=== PATIENT | male | born 1975 | race Caucasian/White ===

== ENCOUNTER 2017-08-21 05:38 | Inpatient (IN) | END 2017-08-22 11:40 | disposition home or self-care (01) | DRG 470 ==

== ENCOUNTER → 2017-10-14 | Outpatient (CLI) | END | disposition home or self-care (01) ==

== ENCOUNTER 2018-09-10 05:12 | Inpatient (IN) | payer OTHER ==
[2018-09-04 11:49] VITALS: Ht 180.3 cm; Wt 90.8 kg
[2018-09-10] VITALS (34 sets, daily range): BP systolic 104–143; BP diastolic 51–99; PULSE 58–91; RESP 11–21
[~2018-09-10] VITALS: Ht 180.3 cm; Wt 90.8 kg
[~2018-09-10 05:12] MED LIST: CEFAZOLIN 2 GM/50 ML (PMX) 50 ML IVPB ONE
--- NOTE | 2018-09-10 05:44 | HPN ---
Date/Time of Note Date/Time of Note DATE: 09/10/18 TIME: 05:44 Interval H&P Admission Note Pt. seen H&P reviewed: No system changes TANVI HYLTON MD September 10, 2018 05:44
--- NOTE | 2018-09-10 05:49 | OPR ---
Date/Time of Note Date/Time of Note DATE: 09/10/18 TIME: 05:45 Operative Report Procedure Date: September 10, 2018 Preoperative Diagnosis Left sciatic nerve entrapment Postoperative Diagnosis 1. Left sciatic nerve entrapment Operation/Procedure Performed 1. Left sciatic neurolysis 2. Injection of PRP solution Surgeon see signature line Diesel Service Apprentice Javed Guy MD Anesthesia Type: general Estimated Blood Loss: 10 - 50 ml's Transfusion none Specimen None Grafts/Implants none Complications none Pt Condition Post Procedure: stable Disposition: PACU Procedure Description NITRO WORKER SURGEON: Javed Guy MD was asked to be present at my request as a result of the complexity associated with this procedure including positioning of the extremity, positioning of the instrumentation and protection of the neurovascular structures. In my opinion, the assistance offered by a industrial cleaning technician is insufficient and Javed Guy MD should be compensated for his time. PROCEDURE IN DETAIL: Following the administration of general endotracheal anesthesia, the patient was placed in the right lateral decubitus position. The right antecubital fossa was prepped and 60 cc of blood were aspirated and given to the sales representative metals from the company for preparation of the PRP solution. All prominences were padded and axillary fold was placed. The leg was then prepped free. A lateral incision was then made exposing the tensor fascia the fascia through the prior incision. The abductor mechanism was then incised and split along its fibers. The area of the prior fracture was identified and very significant scar tissue was then delineated. Deep to the abductor mechanism, the sciatic nerve was then identified. The diet sciatic nerve was then carefully dissected and a thorough neurolysis was completed. There were significant scar bands attaching the sciatic nerve to the area of the prior fracture including along where the plate had been applied. There was very severe scarring with a very large vein that was dilated secondary to the poststenotic dilatation. The previously implanted hardware was covered over with significant scar tissue and no significant pro minence was noted. An extensive dissection of the nerve was then undertaken exposing the entirety of the sciatic nerve from the area below the abductor tendon insertion up to the sciatic notch. A complete neuro lysis was performed of the entire nerve. Using bipolar electrocautery several small bleeders were cauterized. The wound was thoroughly irrigated. The PRP solution was then placed along the area of the nerve. The wound was then closed in layers including 0 Vicryl, 2-0 Vicryl and 4-0 Monocryl followed by a Prenio for the final cover. This was watertight. Estimated blood loss was procedure was 50 cc. Postoperative radiographs will be obtained in the recovery room. TANVI HYLTON MD September 10, 2018 05:49
[2018-09-10] MEDS ORDERED: DEXAMETHASONE 1 MG TAB PO ONE (06:00)
[2018-09-10] MEDS ORDERED: SOD CHLORIDE 0.9% 100 ML, TRANEXAMIC ACID 3,000 MG IRR ONE ×2 (06:00)
[2018-09-10] MEDS ORDERED: BUPIVACAINE 0.5% (SDV) 30 ML, morphine SULFATE (PF) 8 MG, EPINEPHrine 0.3 MG, KETOROLAC... IRR SCH ×7 (06:00)
[2018-09-10] MEDS ORDERED: GABAPENTIN 300 MG CAP PO ONE (06:00)
[2018-09-10] MEDS ORDERED: TRANEXAMIC ACID 1GM/100ML(PMX) 100 ML IVPB ONE (06:00)
[2018-09-10] MEDS ORDERED: CEFAZOLIN 2 GM/50 ML (PMX) 50 ML IVPB ONE (06:00)
--- NOTE | 2018-09-10 06:44 | PREAC ---
Date/Time of Note Date/Time of Note DATE: 09/10/18 TIME: 06:43 Anesthesia Eval and Record Evaluation Time Pre-Procedure Interview DATE: 09/10/18 TIME: 06:43 Age 43 Sex male NPO: 8 hrs Preoperative diagnosis left sciatic nerve entrapment Planned procedure left hip sciatic neurolysis, possible removal of hardware Past Medical History Past Medical History: Includes Endo: Other (benign carcinoid tumor removal) GI: Obesity Surgery & Anesthesia Issues No known issue Meds Anticoagulation: No Beta Kemal within 24 hr: No Reason Beta Kemal not given: Pt. not on B-Kemal No Active Prescriptions or Reported Meds Current Medications Bupivacaine HCl/ Morphine Sulfate/ Epinephrine/ Ketorolac Tromethamine/ Clonidine HCl/ Sodium Chloride/ Vancomycin HCl INTRA-OP IRR ; Start 09/10/18 at 06:00 Lactated Ringer's 1,000 ml @ 75 mls/hr [id number] IV ; Start 09/10/18 at 06:00 Meds reviewed: Yes Allergies Coded Allergies: No Known Allergy (Unverified , 09/10/18) Allergies Reviewed: Yes Labs/Studies Labs Reviewed: Reviewed by anesthesiologist test: N/A Studies: ECG, CXR Pre-procedure Exam Last vitals Vital Signs Date Temp Pulse Resp B/P (MAP) Pulse Ox O2 O2 Flow FiO2 Time Delivery Rate 09/10/18 97.8 71 18 143/99 96 Room Air 05:36 (114) Airway: Adequate mouth opening, Adequate thyromental dist Mallampati: Mallampati II Teeth: Normal Lung: Normal Heart: Normal ASA Physical Status ASA physical status: 2 Emergency: None Planned Anesthetic General/MAC: LMA Planned Pain Management Parenteral pain med Pre-operative Attestations Prior to commencing anesthesia and surgery, the patient was re-evaluated, there was verification of: *The patient's identity *The results of appropriate recent lab work and preoperative vital signs *The above evaluation not changing prior to induction *Anesthetic plan, risk benefits, alternative and complications discussed with patient/family; questions answered; patient/family understands, accepts and wishes to proceed. GENESIS MINAYA September 10, 2018 06:44
[2018-09-10] MEDS ORDERED: DOXY100T20 PO (06:58)
[2018-09-10] MEDS ORDERED: LIDOCAINE 2% (SDV) 5 ML INJ ONE (06:59)
[2018-09-10] MEDS ORDERED: ROCURONIUM 50 MG INJ ONE (06:59)
[2018-09-10] MEDS ORDERED: PROPOFOL 20 ML ONE (06:59)
[2018-09-10] MEDS ORDERED: POLYMYXIN/BACITRACIN 1L IRRIG ONE (07:30)
[2018-09-10] MEDS ORDERED: THROMBIN 5000 UNIT VIAL ONE (07:30)
[2018-09-10] MEDS ORDERED: CA CHLORIDE (GM) 10% 10 ML INJ ONE (07:30)
[2018-09-10] MEDS ORDERED: CEFAZOLIN 1 GM INJ ONE (07:45)
[2018-09-10] MEDS ORDERED: ONDANSETRON 4 MG INJ ONE (07:45)
[2018-09-10] MEDS ORDERED: DEXAMETHASONE 4 MG/ML 5 ML INJ ONE (07:45)
--- NOTE | 2018-09-10 09:27 | PDOCDIS ---
Discharge Instructions DIAGNOSIS Discharge Diagnosis Sciatic nerve entrapment CONDITION [id number] Patient Condition: [id number] Good HOME CARE INSTRUCTIONS: [id number] Diet Instructions: [id number] Regular ACTIVITY: [id number] Activity Restrictions: Teidb2y Slowly Increase Activity Keep Limb Elevated [id number] Bathing Restrictions: [id number] Shower FOLLOW UP/APPOINTMENTS Follow-up Plan 2 weeks in the office SCHOOL/WORK RELEASE May return to School/Work with: No Restrictions School/Work Release Comment: Crutches as necessary. In addition, he is to take aspirin 81 mg twice TANVI Mcclure MD September 10, 2018 09:27
[2018-09-10] MEDS ORDERED: ZOLPIDEM 5 MG TAB PO PRN (09:30)
[2018-09-10] MEDS ORDERED: DIPHENHYDRAMINE 50 MG INJ IV PRN ×2 (09:30→10:00)
[2018-09-10] MEDS ORDERED: MAGNESIUM HYDROXIDE 30ML CUP PO PRN (09:30)
[2018-09-10] MEDS ORDERED: HYDROmorphONE 1 MG/ML SYG IV PRN (09:30)
[2018-09-10] MEDS ORDERED: NACL 0.9% 3 ML SYG IV SCH (09:30)
[2018-09-10] MEDS ORDERED: oxyCODONE 5 MG TAB PO PRN ×2 (09:30)
--- NOTE | 2018-09-10 09:50 | PAC ---
Date/Time of Note Date/Time of Note DATE: 09/10/18 TIME: 09:49 Post-Anesthesia Notes Post-Anesthesia Note Last documented vital signs Vital Signs Date Temp Pulse Resp B/P (MAP) Pulse Ox O2 O2 Flow FiO2 Time Delivery Rate 09/10/18 97.8 71 18 143/99 96 Room Air 0948 (114) Activity: WNL Respiratory function: WNL Cardiovascular function: WNL Mental status: Baseline Pain reasonably controlled: Yes Hydration appropriate: Yes Nausea/Vomiting absent: Yes GENESIS MINAYA September 10, 2018 09:50
[2018-09-10] MEDS ORDERED: hydrALAzine 20 MG INJ IV PRN (10:00)
[2018-09-10] MEDS ORDERED: KETOROLAC 30 MG INJ IV PRN (10:00)
[2018-09-10] MEDS ORDERED: EPHEDrine 25 MG/5 ML SYG IV PRN (10:00)
[2018-09-10] MEDS ORDERED: HYDROmorphONE 1 MG/5 ML IV SYRINGE IV PRN ×2 (10:00)
[2018-09-10] MEDS ORDERED: LABETALOL HCL 20MG INJ IV PRN (10:00)
[2018-09-10] MEDS ORDERED: ALBUTEROL 0.083% (NEB) 2.5 MG/3 ML AMP HHN PRN (10:00)
[2018-09-10] MEDS ORDERED: MEPERIDINE 25 MG INJ IV PRN (10:00)
[2018-09-10] MEDS ORDERED: OXYCODONE/ACETAMINOPHEN (5/325) TAB PO PRN ×2 (10:00)
[2018-09-10] MEDS ORDERED: METOCLOPRAMIDE 10 MG INJ IV PRN (10:00)
[2018-09-10] MEDS ORDERED: ONDANSETRON 4 MG INJ IV PRN (10:00)
[2018-09-10] MEDS ORDERED: FENTAnyl 50 MCG/ML VIAL IV PRN ×3 (10:00)
[2018-09-10] MEDS ORDERED: MIDAZOLAM 1 MG/ML 2 ML INJ IV PRN (10:00)
[2018-09-10] MEDS: HYDROmorphONE 1 MG/5 ML IV SYRINGE IV PRN ×4 (10:54→13:47)
[2018-09-10] MEDS: DEXAMETHASONE 2 MG TAB PO SCH ×3 (13:51→23:20)
[2018-09-10] MEDS: ONDANSETRON 4 MG INJ IV PRN ×2 (14:48→20:11)
[2018-09-10] MEDS: LACTATED RINGER'S 1,000 ML IV SCH ×3 (15:28→19:21)
[2018-09-10] MEDS: CEFAZOLIN 1 GM/50 ML (PMX) 50 ML IVPB SCH ×2 (16:11→23:19)
--- NOTE | 2018-09-10 17:53 | CONS ---
Assessment/Plan Assessment/Plan Problems: (1) Personal history of benign carcinoid tumor Status: Chronic Comment: Noted. No intervention required. Pt. essentially healthy (2) Traumatic arthritis of hip Status: Resolved Comment: s/p arthroplasty Qualifiers: Qualified Codes: M12.552 - Traumatic arthropathy, left hip (3) Sciatic nerve pain Status: Resolved Comment: now s/p neurolysis Qualifiers: Qualified Codes: M54.32 - Sciatica, left side (4) Aftercare following surgery of the nervous system Status: Acute Comment: Doing well POD #0. PT and pain control per primary team. Will monitor for medical issues and manage should they arise. Pt. cleared for d/c from medical standpoint once primary team feels pt. ready for d/c home. Consultation Date/Type/Reason Admit Date/Time September 10, 2018 at 05:12 Date of Consultation: September 10, 2018 Type of Consult Medicine Reason for Consultation Medical Management Requesting Provider: TANVI HYLTON MD Date/Time of Note DATE: 09/10/18 TIME: 17:44 Hx of Present Illness 43 y/o AA M w/ h/o carcinoid syndrome in [facility] [place] until 2 y. ago when he tripped at work on a cart. Ever since then has had problems w/ L hip. Initially arthr oscopy to remove loose bone fragments. Subsequently had to have JEREMIAH. Now continues to have pain. Has been diagnosed w/ L hip sciatic nerve entrapment syndrome. Now s/p L sciatic neurolysis and PRP injection. POD#0 and doing well. Constitutional: no complaints, improved Eyes: no complaints ENT: no complaints Respiratory: no complaints Cardiovascular: no complaints Gastrointestinal: no complaints Genitourinary: no complaints Musculoskeletal: bone/joint pain (mild throbbing L hip) Neurologic: no complaints Past Medical History Medical History: other (carcinoid syndrome) Home Meds Reported Medications Doxycycline Hyclate* (Doxycycline Hyclate*) 100 Mg Tablet., 100 MG PO BID, TAB 09/10/18 Medications Current Medications Bupivacaine HCl/ Morphine Sulfate/ Epinephrine/ Ketorolac Tromethamine/ Clonidine HCl/ Sodium Chloride/ Vancomycin HCl INTRA-OP IRR ; Start 09/10/18 at 06:00 Lactated Ringer's 1,000 ml @ 75 mls/hr [id number] IV ; Start 09/10/18 at 06:00 Lactated Ringer's 1,000 ml @ 100 mls/hr Q10H IV Last administered on 09/10/18at 15:28; Admin Dose 100 MLS/HR; Start 09/10/18 at 09:21 Cefazolin Sodium 50 ml @ 100 mls/hr Q8H IVPB Last administered on 09/10/18at 16:11; Admin Dose 100 MLS/HR; Start 09/10/18 at 16:00; Stop 09/11/18 at 08:29 Senna/Docusate Sodium (Senokot-S) 1 tab BID PO ; Start 09/10/18 at 21:00 Simethicone (Mylicon) 80 mg TID PRN PO .GAS; Start 09/10/18 at 09:30 Magnesium Hydroxide (Milk Of Mag) 30 ml BID PRN PO .CONSTIPATION; Start 09/10/18 at 09:30 Magnesium Hydroxide (Milk Of Mag) 30 ml HS PO ; Start 09/12/18 at 21:00 Dexamethasone (Decadron) 2 mg Q6 PO Last administered on 09/10/18at 13:51; Admin Dose 2 MG; Start 09/10/18 at 12:00; Stop 09/11/18 at 06:01 Gabapentin (Neurontin) 300 mg HS PO ; Start 09/10/18 at 21:00 Acetaminophen 100 ml @ 400 mls/hr Q8H IVPB ; Start 09/10/18 at 12:00; Stop 09/11/18 at 04:14 Oxycodone HCl (Roxicodone) 15 mg Q4H PRN PO .PAIN; Start 09/10/18 at 09:30 Oxycodone HCl (Roxicodone) 10 mg Q4H PRN PO .PAIN; Start 09/10/18 at 09:30 Oxycodone HCl (Roxicodone) 5 mg Q4H PRN PO .PAIN; Start 09/10/18 at 09:30 Hydromorphone HCl (Dilaudid) 1 mg Q4H PRN IV .BREAKTHROUGH PAIN; Start 09/10/18 at 09:30 Ondansetron HCl (Zofran Inj) 4 mg Q6H PRN IV NAUSEA/VOMITING Last administered on 09/10/18at 14:48; Admin Dose 4 MG; Start 09/10/18 at 09:30 Diphenhydramine HCl (Benadryl) 25 mg Q6H PRN IV .PRURITUS; Start 09/10/18 at 09:30 Zolpidem Tartrate (Ambien) 10 mg HS PRN PO .INSOMNIA; Start 09/10/18 at 09:30 IV Flush (NS 3 ml) 3 ml per protocol IV ; Start 09/10/18 at 09:30 Aspirin (Ecotrin) 325 mg DAILY PO ; Start 09/11/18 at 09:00 Allergies: Coded Allergies: No Known Allergy (Unverified , 09/10/18) Past Surgical History Past Surgical Hx: other (vasectomy, pulmonary carcinoid resection, L hip arthroscopy, L JEREMIAH) Family History Significant Family History: hypertension (father), vascular disease (stroke, father), other (SLE in sister) Social History b. [place], , 2 children, disabled shag truck driver Alcohol Use: occasionally Smoking Status: Never smoker Drug Use: none Exam/Review of Systems Exam Vitals VS - Last 72 Hours, by Label Date Temp Pulse Resp B/P (MAP) Pulse Ox O2 O2 Flow FiO2 Time Delivery Rate 09/10/18 72 18 129/68 93 Room Air 15:00 (88) 09/10/18 66 14 126/66 94 Room Air 14:31 (86) 09/10/18 17 126/75 94 Room Air 14:00 (92) 09/10/18 66 11 116/73 94 Room Air 13:01 (87) 09/10/18 98.6 12:31 09/10/18 58 14 117/65 97 Room Air 12:31 (82) 09/10/18 66 13 113/77 97 Room Air 12:01 (89) 09/10/18 64 14 114/68 97 Room Air 11:31 (83) 09/10/18 72 12 115/77 97 Nasal 2.0 11:01 (90) Cannula 09/10/18 72 13 125/74 97 Nasal 2.0 10:56 (91) Cannula 09/10/18 78 19 131/80 98 Nasal 2.0 10:51 (97) Cannula 09/10/18 76 13 117/69 98 Nasal 2.0 10:46 (85) Cannula 09/10/18 74 14 122/63 97 Nasal 2.0 10:41 (82) Cannula 09/10/18 76 11 122/75 98 Nasal 2.0 10:36 (91) Cannula 09/10/18 74 13 123/65 98 Nasal 2.0 10:31 (84) Cannula 09/10/18 74 21 131/63 97 Nasal 2.0 10:26 (85) Cannula 09/10/18 74 16 116/68 96 Nasal 2.0 10:21 (84) Cannula 09/10/18 80 19 122/84 97 Nasal 2.0 10:16 (97) Cannula 09/10/18 82 18 128/73 98 Nasal 2.0 10:11 (91) Cannula 09/10/18 80 14 122/68 98 Nasal 2.0 10:06 (86) Cannula 09/10/18 90 16 121/71 96 Nasal 2.0 10:01 (88) Cannula 09/10/18 90 12 124/82 89 Nasal 2.0 09:56 (96) Cannula 09/10/18 88 14 121/80 96 Nasal 2.0 09:51 (94) Cannula 09/10/18 98.3 90 18 115/66 98 Room Air 09:45 (82) 09/10/18 97.8 71 18 143/99 96 Room Air 05:36 (114) Vital Signs Date Temp Pulse Resp B/P (MAP) Pulse Ox O2 O2 Flow FiO2 Time Delivery Rate 09/10/18 72 18 129/68 93 Room Air 15:00 (88) 09/10/18 98.6 12:31 09/10/18 2.0 11:01 Constitutional: alert, oriented, well developed Psych: no complaints, nl mood/affect Eyes: nl conjunctiva, EOMI, nl lids, nl sclera, PERRL ENMT: nl external ears & nose, mucosa pink and moist Neck: supple, non-tender; No bruits, No masses, No thyromegaly Respiratory: clear to auscultation, normal air movement Cardiovascular: regular rate and rhythm, nl pulses; No edema, No murmurs/extra sounds, No rub Gastrointestinal: soft, nl liver, spleen, non-tender, bowel sounds; No mass, No rebound or guarding Musculoskeletal: nl extremities to inspection Extremities: normal pulses; No cyanosis, No clubbing, No edema Neurological: FORESTRY FACULTY MEMBER II-XII intact, nl mental status, nl speech, nl strength Medications Medication Current Medications Bupivacaine HCl/ Morphine Sulfate/ Epinephrine/ Ketorolac Tromethamine/ Clonidine HCl/ Sodium Chloride/ Vancomycin HCl INTRA-OP IRR ; Start 09/10/18 at 06:00 Lactated Ringer's 1,000 ml @ 75 mls/hr [id number] IV ; Start 09/10/18 at 06:00 Lactated Ringer's 1,000 ml @ 100 mls/hr Q10H IV Last administered on 09/10/18at 15:28; Admin Dose 100 MLS/HR; Start 09/10/18 at 09:21 Cefazolin Sodium 50 ml @ 100 mls/hr Q8H IVPB Last administered on 09/10/18at 1 6:11; Admin Dose 100 MLS/HR; Start 09/10/18 at 16:00; Stop 09/11/18 at 08:29 Senna/Docusate Sodium (Senokot-S) 1 tab BID PO ; Start 09/10/18 at 21:00 Simethicone (Mylicon) 80 mg TID PRN PO .GAS; Start 09/10/18 at 09:30 Magnesium Hydroxide (Milk Of Mag) 30 ml BID PRN PO .CONSTIPATION; Start 09/10/18 at 09:30 Magnesium Hydroxide (Milk Of Mag) 30 ml HS PO ; Start 09/12/18 at 21:00 Dexamethasone (Decadron) 2 mg Q6 PO Last administered on 09/10/18at 13:51; Admin Dose 2 MG; Start 09/10/18 at 12:00; Stop 09/11/18 at 06:01 Gabapentin (Neurontin) 300 mg HS PO ; Start 09/10/18 at 21:00 Acetaminophen 100 ml @ 400 mls/hr Q8H IVPB ; Start 09/10/18 at 12:00; Stop 09/11/18 at 04:14 Oxycodone HCl (Roxicodone) 15 mg Q4H PRN PO .PAIN; Start 09/10/18 at 09:30 Oxycodone HCl (Roxicodone) 10 mg Q4H PRN PO .PAIN; Start 09/10/18 at 09:30 Oxycodone HCl (Roxicodone) 5 mg Q4H PRN PO .PAIN; Start 09/10/18 at 09:30 Hydromorphone HCl (Dilaudid) 1 mg Q4H PRN IV .BREAKTHROUGH PAIN; Start 09/10/18 at 09:30 Ondansetron HCl (Zofran Inj) 4 mg Q6H PRN IV NAUSEA/VOMITING Last administered on 09/10/18at 14:48; Admin Dose 4 MG; Start 09/10/18 at 09:30 Diphenhydramine HCl (Benadryl) 25 mg Q6H PRN IV .PRURITUS; Start 09/10/18 at 09:30 Zolpidem Tartrate (Ambien) 10 mg HS PRN PO .INSOMNIA; Start 09/10/18 at 09:30 IV Flush (NS 3 ml) 3 ml per protocol IV ; Start 09/10/18 at 09:30 Aspirin (Ecotrin) 325 mg DAILY PO ; Start 09/11/18 at 09:00 KALEE CALDERON MD September 10, 2018 17:53
[2018-09-10] MEDS: ACETAMINOPHEN 1000MG/100ML IV 100 ML IVPB SCH ×2 (20:00→20:10)
[2018-09-10] MEDS: SENNA/DOCUSATE NA (8.6MG/50MG) TAB PO SCH (20:11)
[2018-09-10] MEDS ORDERED: GABAPENTIN 300 MG CAP PO SCH (21:00)
[2018-09-10] MEDS: oxyCODONE 5 MG TAB PO PRN (22:23)
[2018-09-11 00:18] VITALS: BP 136/73; PULSE 88; RESP 18
[2018-09-11] MEDS: LACTATED RINGER'S 1,000 ML IV SCH ×3 (01:36→15:21)
[2018-09-11] MEDS: ACETAMINOPHEN 1000MG/100ML IV 100 ML IVPB SCH (03:56)
[2018-09-11] MEDS: oxyCODONE 5 MG TAB PO PRN ×3 (04:37→12:50)
--- NOTE | 2018-09-11 05:56 | PN ---
Date/Time of Note Date/Time of Note DATE: 09/11/18 TIME: 05:55 Subjective Awake and alert with minimal to no pain Objective Vitals Vital Signs Date Temp Pulse Resp B/P (MAP) Pulse Ox O2 O2 Flow FiO2 Time Delivery Rate 09/11/18 98.2 88 18 136/73 98 00:18 (94) 09/10/18 Room Air 20:17 09/10/18 2.0 11:01 Intake and Output 09/10/18 09/10/18 09/11/18 1515:00 23:00 07:00 IntakeIntake Total 1150 ml 900 ml 1150 ml OutputOutput Total 520 ml 1000 ml 600 ml BalanceBalance 630 ml -100 ml 550 ml Wound clean and dry. Neurologically intact. No signs of DVT. Medications Medications Current Medications Bupivacaine HCl/ Morphine Sulfate/ Epinephrine/ Ketorolac Tromethamine/ Clonidine HCl/ Sodium Chloride/ Vancomycin HCl INTRA-OP IRR ; Start 09/10/18 at 06:00 Lactated Ringer's 1,000 ml @ 75 mls/hr [id number] IV ; Start 09/10/18 at 06:00 Lactated Ringer's 1,000 ml @ 100 mls/hr Q10H IV Last administered on 09/11/18at 01:36; Admin Dose 100 MLS/HR; Start 09/10/18 at 09:21 Cefazolin Sodium 50 ml @ 100 mls/hr Q8H IVPB Last administered on 09/10/18at 23:19; Admin Dose 100 MLS/HR; Start 09/10/18 at 16:00; Stop 09/11/18 at 08:29 Senna/Docusate Sodium (Senokot-S) 1 tab BID PO Last administered on 09/10/18at 20:11; Admin Dose 1 TAB; Start 09/10/18 at 21:00 Simethicone (Mylicon) 80 mg TID PRN PO .GAS; Start 09/10/18 at 09:30 Magnesium Hydroxide (Milk Of Mag) 30 ml BID PRN PO .CONSTIPATION; Start 09/10/18 at 09:30 Magnesium Hydroxide (Milk Of Mag) 30 ml HS PO ; Start 09/12/18 at 21:00 Dexamethasone (Decadron) 2 mg Q6 PO Last administered on 09/10/18at 23:20; Admin Dose 2 MG; Start 09/10/18 at 12:00; Stop 09/11/18 at 06:01 Gabapentin (Neurontin) 300 mg HS PO Last administered on 09/10/18at 20:11; Admin Dose 300 MG; Start 09/10/18 at 21:00 Oxycodone HCl (Roxicodone) 15 mg Q4H PRN PO .PAIN; Start 09/10/18 at 09:30 Oxycodone HCl (Roxicodone) 10 mg Q4H PRN PO .PAIN Last administered on 09/11/18at 04:37; Admin Dose 10 MG; Start 09/10/18 at 09:30 Oxycodone HCl (Roxicodone) 5 mg Q4H PRN PO .PAIN; Start 09/10/18 at 09:30 Hydromorphone HCl (Dilaudid) 1 mg Q4H PRN IV .BREAKTHROUGH PAIN; Start 09/10/18 at 09:30 Ondansetron HCl (Zofran Inj) 4 mg Q6H PRN IV NAUSEA/VOMITING Last administered on 09/10/18at 20:11; Admin Dose 4 MG; Start 09/10/18 at 09:30 Diphenhydramine HCl (Benadryl) 25 mg Q6H PRN IV .PRURITUS; Start 09/10/18 at 09:30 Zolpidem Tartrate (Ambien) 10 mg HS PRN PO .INSOMNIA; Start 09/10/18 at 09:30 IV Flush (NS 3 ml) 3 ml per protocol IV ; Start 09/10/18 at 09:30 Aspirin (Ecotrin) 325 mg DAILY PO ; Start 09/11/18 at 09:00 VTE Prophylaxis Risk score (from Nsg)>0 risk: 2 SCD applied (from Nsg): Yes Lines/Catheters IV Catheter Type: Saline Lock [place] in Place: No Assessment/Plan Assessment/Plan Assessment: Status post open sciatic neural lysis Plan begin PT this morning discharge after TANVI HYLTON MD September 11, 2018 05:56
[2018-09-11] MEDS: DEXAMETHASONE 2 MG TAB PO SCH (05:59)
[2018-09-11 07:57] VITALS: BP 136/85; PULSE 85; RESP 18
[2018-09-11] MEDS: SENNA/DOCUSATE NA (8.6MG/50MG) TAB PO SCH (08:22)
[2018-09-11] MEDS: CEFAZOLIN 1 GM/50 ML (PMX) 50 ML IVPB SCH (08:23)
[2018-09-11] MEDS ORDERED: ASPIRIN (EC) 325 MG TAB PO SCH (09:00)
[2018-09-11 13:44] VITALS: BP 144/96; PULSE 72; RESP 18
[2018-09-12] MEDS ORDERED: MAGNESIUM HYDROXIDE 30ML CUP PO SCH (21:00)
== END 2018-09-11 16:40 | disposition home or self-care (01) | DRG 552 ==
LOC: REC 05:12 → EDSTATUS 07:00 → MS1 14:59
PROVIDERS: ADMIT Orthopaedic Surgery; ATTEND Orthopaedic Surgery
PROC: 3E0T3TZ Introduction of Destructive Agent into Peripheral Nerves and Plexi, Percutaneous Approach (ICD-10-PCS; principal; 2018-09-10 07:00)
DX: M54.32 Sciatica, left side (principal)
CPT/HCPCS: 86999; 97116; 97161; 97530; J0131; J0171; J0690; J0735; J1100; J1170; J1885; J2274; J2405; J3010; J3370; J7120